=== PATIENT | male | born 1960 | race Caucasian/White ===

== ENCOUNTER 2016-11-04 09:17 | Emergency (ER) | payer OTHER ==
[~2016-11-04] VITALS: Ht 177.8 cm; Wt 88.0 kg
[~2016-11-04 09:17] MED LIST: ASPIRIN EC325 MG; CIPROFLOXACIN250 MG; DEMADEX20 MG; EFFER-K 20 MEQ20 MEQ; LANTUS100 UNITS/; LASIX20 MG PO; METOPROLOL SUCC25 MG; NORVASC10 MG; NOVOLOG100 UNITS/; PRAVACHOL80 MG
== END 2016-11-04 09:37 | disposition home or self-care (01) ==
LOC: ED 09:17
DX: Z00.8 Encounter for other general examination (principal)

== ENCOUNTER 2016-11-06 16:01 | Emergency (ER) | payer OTHER ==
[~2016-11-06] VITALS: Ht 177.8 cm; Wt 87.5 kg
== END 2016-11-06 16:45 | disposition home or self-care (01) ==
LOC: ED 16:01
DX: Z00.8 Encounter for other general examination (principal)

== ENCOUNTER 2019-06-20 16:25 | Emergency (ER) | payer OTHER, MEDICARE ==
[~2019-06-20] VITALS: Ht 177.8 cm; Wt 87.5 kg
--- OUTSIDE RECORDS SUMMARY | 2019-06-20 16:28 | XMS ---
PreManage Notification: FLORIDALMA HAMLIN Security Rouge Mixer Events No recent Security Events currently on file CRITERIA MET - History of Sepsis CARE PROVIDERS Zia Dobbs - Case or Funeral Home Assistant [facility] PHONE: [phone] FLORIDALMA FORTUNE Primary Care Current PHONE: Unknown Andrew has no Care Guidelines for this patient. EAgatha VISIT COUNT (12 MO.) Ivonne Murphy TOTAL 1 NOTE: Visits indicate total known visits. ED/UCC VISIT TRACKING (12 MO.) 06/20/2019 16:26 [facility] [place] TYPE: Emergency COMPLAINT: - L LEG WEEPING WOUND INPATIENT VISIT TRACKING (12 MO.) No inpatient visits to display in this time frame [id number]
[2019-06-20] MEDS ORDERED: WARFARIN SODIUM2 MG PO (16:46)
[2019-06-20] MEDS ORDERED: ASPIRIN81 MG PO (16:47)
[2019-06-20] MEDS ORDERED: LEVOXYL25 MCG PO (16:51)
[2019-06-20] MEDS ORDERED: KEFLEX500 MG PO (16:55)
[2019-06-20] MEDS ORDERED: BACTRIM DS TAB1 EACH PO (16:55)
== END 2019-06-20 17:05 | disposition home or self-care (01) ==
LOC: ED 16:25
DX: L03.116 Cellulitis of left lower limb (principal); I10 Essential (primary) hypertension; E11.9 Type 2 diabetes mellitus without complications; E78.00 Pure hypercholesterolemia, unspecified; I25.2 Old myocardial infarction; Z87.891 Personal history of nicotine dependence; Z95.1 Presence of aortocoronary bypass graft; Z89.611 Acquired absence of right leg above knee; Z79.4 Long term (current) use of insulin; Z79.01 Long term (current) use of anticoagulants; Z79.82 Long term (current) use of aspirin; Z79.899 Other long term (current) drug therapy
CPT/HCPCS: 99283

== ENCOUNTER 2019-09-11 09:47 | Emergency (ER) | payer MEDICARE, MEDICAID ==
[~2019-09-11] VITALS: Ht 177.8 cm; Wt 87.5 kg
[~2019-09-11 09:47] MED LIST changes: +ASPIRIN81 MG PO; +BACTRIM DS TAB1 EACH PO; +KEFLEX500 MG PO; +LEVOXYL25 MCG PO; +WARFARIN SODIUM2 MG PO
--- OUTSIDE RECORDS SUMMARY | 2019-09-11 09:50 | XMS ---
PreManage Notification: FLORIDALMA HAMLIN Security Mangle Catcher Events No recent Security Events currently on file CRITERIA MET - History of Sepsis Dx CARE PROVIDERS RAYMOND PACHECO Internal Medicine 06/21/2019-Current PHONE: Unknown FLORIDALMA FORTUNE Physician Craft Superintendent Current PHONE: Unknown Andrew has no Care Guidelines for this patient. Care History Medical/Surgical 06/21/2019 [facility] \T\middot;\T\nbsp; PATIENT IS A -RECEIVES SERVICES THROUGH NH IN [place]. \T\middot;\T\nbsp; Location: [address], [place] [address]- E.D. VISIT COUNT (12 MO.) [address] [facility] TOTAL 2 NOTE: Visits indicate total known visits. ED/UCC VISIT TRACKING (12 MO.) 09/11/2019 09:48 [facility] [place] TYPE: Emergency COMPLAINT: - BACK PAIN 06/20/2019 16:26 [facility] [place] TYPE: Emergency COMPLAINT: - L LEG WEEPING WOUND DIAGNOSES: - Cellulitis of left lower limb - Old myocardial infarction - Pure hypercholesterolemia, unspecified - Presence of aortocoronary bypass graft - terminal block assembler (current) use of anticoagulants - Type 2 diabetes mellitus without complications - Personal history of nicotine dependence - Erythematous condition, unspecified - Essential (primary) hypertension - [facility] (current) use of insulin - Other [facility] (current) drug therapy - Acquired absence of right leg above knee - [facility] (current) use of aspirin INPATIENT VISIT TRACKING (12 MO.) No inpatient visits to display in this time frame [email or web address]
[2019-09-11] MEDS ORDERED: RENAL VITAMIN0.8 MG PO (10:13)
[2019-09-11] MEDS ORDERED: RENAGEL800 MG PO (10:13)
[2019-09-11] MEDS ORDERED: NEURONTIN300 MG PO (10:13)
[2019-09-11] MEDS ORDERED: ALOGLIPTIN6.25 MG PO (10:14)
[2019-09-11] MEDS ORDERED: NORCO 7.5-3251 EACH PO (12:12)
== END 2019-09-11 13:15 | disposition home or self-care (01) ==
LOC: ED 09:47
DX: M54.5 Low back pain (principal); R79.1 Abnormal coagulation profile; I12.9 Hypertensive chronic kidney disease with stage 1 through stage 4 chronic kidney disease, or unspecified chronic kidney disease; E11.22 Type 2 diabetes mellitus with diabetic chronic kidney disease; N18.9 Chronic kidney disease, unspecified; I25.2 Old myocardial infarction; Z87.891 Personal history of nicotine dependence; Z79.899 Other long term (current) drug therapy; Z79.4 Long term (current) use of insulin; Z79.01 Long term (current) use of anticoagulants; Z79.82 Long term (current) use of aspirin; Z99.2 Dependence on renal dialysis
CPT/HCPCS: 72131; 80053; 85025; 85610; 85651; 86140; 99284-25; A9270

== ENCOUNTER 2020-02-16 09:59 | Emergency (ER) | payer MEDICARE, OTHER ==
[~2020-02-16] VITALS: Ht 177.8 cm; Wt 87.5 kg
[~2020-02-16 09:59] MED LIST changes: +ALOGLIPTIN6.25 MG PO; +NEURONTIN300 MG PO; +NORCO 7.5-3251 EACH PO; +RENAGEL800 MG PO; +RENAL VITAMIN0.8 MG PO
--- OUTSIDE RECORDS SUMMARY | 2020-02-16 10:02 | XMS ---
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 Care History Medical/Surgical 06/21/2019 [facility] \T\middot;\T\nbsp; PATIENT IS A -RECEIVES SERVICES THROUGH AL IN [place]. \T\middot;\T\nbsp; Location: [address], [place] [address]- EParisDParis VISIT COUNT (12 MO.) 3 ISIDORO Murphy TOTAL 3 NOTE: Visits indicate total known visits. ED/UCC VISIT TRACKING (12 MO.) 02/16/2020 10:00 [facility] [place] TYPE: Emergency COMPLAINT: - BLOOD IN URINE 09/11/2019 09:48 [facility] [place] TYPE: Emergency COMPLAINT: - BACK PAIN/NON INJURY DIAGNOSES: - Old myocardial infarction - moth exterminator (current) use of aspirin - Type 2 diabetes mellitus with diabetic chronic kidney disease - Hypertensive chronic kidney disease with stage 1 through stage 4 chronic kidney disease, or unspecified chronic kidney disease - Low back pain - Dependence on renal dialysis - Abnormal coagulation profile - moth exterminator (current) use of anticoagulants - Personal history of nicotine dependence - care home (current) use of insulin - Chronic kidney disease, unspecified - Other custodial (current) drug therapy 06/20/2019 16:26 [facility] [place] TYPE: Emergency COMPLAINT: - L LEG WEEPING WOUND DIAGNOSES: - Cellulitis of left lower limb - Old myocardial infarction - Pure hypercholesterolemia, unspecified - Presence of aortocoronary bypass graft - moth exterminator (current) use of anticoagulants - Type 2 diabetes mellitus without complications - Personal history of nicotine dependence - Erythematous condition, unspecified - Essential (primary) hypertension - moth exterminator (current) use of insulin - Other custodial (current) drug therapy - Acquired absence of right leg above knee - care home (current) use of aspirin INPATIENT VISIT TRACKING (12 MO.) No inpatient visits to display in this time frame [email or web address]
== END 2020-02-16 10:50 | disposition home or self-care (01) ==
LOC: ED 09:59
DX: R31.9 Hematuria, unspecified (principal); R79.1 Abnormal coagulation profile; I10 Essential (primary) hypertension; E11.9 Type 2 diabetes mellitus without complications; E78.00 Pure hypercholesterolemia, unspecified; I25.2 Old myocardial infarction; Z87.891 Personal history of nicotine dependence; Z79.899 Other long term (current) drug therapy; Z79.82 Long term (current) use of aspirin; Z79.01 Long term (current) use of anticoagulants
CPT/HCPCS: 99283